=== PATIENT | male | born 1985 | race Caucasian/White ===

== ENCOUNTER 2022-03-04 18:25 | Emergency (ER) | payer OTHER ==
[~2022-03-04] VITALS: Ht 193 cm; Wt 86.2 kg
[2022-03-04 18:30] VITALS: BP 120/75
--- NOTE | 2022-03-04 18:50 | NUR ---
pt swabbed for covid(sara/novel). walked and handed to lab
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
[2022-03-04 19:23] LABS: BASOPHILS # (AUTO) 0.1 K/uL (0.00-0.22); BASOPHILS % (AUTO) 0.6 % (0.0-2.0); EOSINOPHILS # (AUTO) 0.6 K/uL (0-0.4); EOSINOPHILS % (AUTO) 6.4 % (0.0-4.0); HEMATOCRIT 40.5 % (36-52); HEMOGLOBIN 13.7 g/dL (12.0-18.0); LYMPHOCYTES # (AUTO) 2.7 K/uL (2.0-11.5); MEAN CORPUSCULAR HEMOGLOBIN 32 pg (27-31); MEAN CORPUSCULAR HGB CONC 34 g/dL (33-37); MEAN CORPUSCULAR VOLUME 93.9 fL (80-94); MONOCYTES # (AUTO) 0.5 K/uL (0.8-1.0); MONOCYTES % (AUTO) 6.2 % (1.7-9.3); NEUTROPHILS % (AUTO) 56.8 % (42.2-75.2); PLATELET COUNT (AUTO) 245 K/uL (140-450); RED BLOOD CELL COUNT(AUTO) 4.31 MIL/uL (4.20-6.10); RED CELL DISTRIBUTION WIDTH 14.5 % (11.6-13.7); WHITE BLOOD COUNT (AUTO) 8.9 K/uL (4.8-10.8)
[2022-03-04 19:52] LABS: ALBUMIN 3.7 g/dL (3.4-5.0); ANION GAP 10.5 (8-16); ASPARTATE AMINOTRANSFERASE 22 U/L (15-37); CARBON DIOXIDE 32.4 mmol/L (21-32); CHLORIDE 103 mmol/L (98-107); CREATININE 0.8 mg/dL (0.6-1.3); GFR ARICAN-AMERICAN 141 mL/min (>90); GLUCOSE 105 mg/dL (74-106); POTASSIUM 3.9 mmol/L (3.5-5.1); SODIUM SERUM 142 mmol/L (136-145); TOTAL BILIRUBIN 0.1 mg/dL (0.0-1.0); UREA NITROGEN, BLOOD 15 mg/dL (7-18)
[2022-03-04 19:55] LABS: SALICYLATE < 2.8 mg/dL (2.8-20.0)
[2022-03-04 19:56] LABS: ACETAMINOPHEN < 0.5 ug/ml (10-30)
--- NOTE | 2022-03-04 20:11 | NUR ---
per pt is medically cleared.
--- NOTE | 2022-03-04 20:33 | NUR ---
PT AWAKE EATING RESP EVEN AND UNLABORED. C/O SI . PT IS NOT ON A 5150 HOLD. A&OX4. PT STATED "I HAVE ALOT GOING ON " HX OF SI IN PAST. DOES HAVE AUDIO / VISUAL HALLUCATIONS . IS VAGE ON DETAILS. SKIN INTACT WARM AND DRY. ALL ITEMS IN ROOM REMOVED FOR PT SAFTEY . WILL BE ASSESS BY TELEPYSCH IN AM. VENKATESH SI BIPLOAR
--- NOTE | 2022-03-04 23:43 | NUR ---
Note meryl in ED - 03/04/22 at 2344 by TANA PT AWAKE AMBULATE TO BATHROOM WITH STEADY GAIT. PT IS MORE ALERT AND TALKING. ANWERING ALL QUESTIONS APPROPRIETLY.
--- NOTE | 2022-03-04 23:44 | NUR ---
PT ASLEEP WITH RESP EVEN AND UNLABORED. NO DISTRESS NOTED. WILL CONTINUE TO MONITOR PT AND PROVIDE SUPPORT WHEN NEEDED
--- NOTE | 2022-03-05 00:39 | NUR ---
REPORT GIVEN TO , STATES HE WILL CALL BACK FOR PSYCH CONSULT WITH PT.
--- NOTE | 2022-03-05 00:52 | NUR ---
ON TELEPSYCH WITH PT
--- NOTE | 2022-03-05 01:02 | NUR ---
STATES PT CAN BE ADMITTED TO A PSYCH FACILITY, PT VERBAZLIZED VOLUNTARY ADMISSION, WANTS TO GET HELP. ORDERED THE FOLLOWING- LOOK FOR PSYCH FACILITY, NO 5150 HOLD, GIVE 50MG OF LAMICTAL PO DAILY, GIVE ONE DOSE NOW WELL ZOLOFT 50MG PO DAILY, GIVE ONE DOSE NOW. STATES IF PT IS STILL IN ER HE WILL Q24HRS TO REASSESS PT.
[2022-03-05] MEDS ORDERED: NICOTINE TRANSD SYS 14 MG/24 HR PATCH TD ONE (01:18)
--- NOTE | 2022-03-05 01:25 | NUR ---
ORDERED LAMICTAL 50 MG XR PO DAILY, I CALLED PHARMACY AFTERHOURS AND SPOKE TO FINA, STATES WE DO NOT HAVE LAMICTAL XR 50MG. MEDICATION HELD FOR THE TIME BEING UNTIL DR. LÓPEZ CALLS BACK.
[2022-03-05] MEDS: SERTRALINE 50 MG TAB PO SCH ×2 (01:26→09:08)
--- NOTE | 2022-03-05 01:50 | NUR ---
per verna garcia to give regular lamictal 50mg po daily. orders carried out.
--- NOTE | 2022-03-05 04:41 | NUR ---
PT ALSEEP RESP EVEN AND UNLABORED. PENDING ACCEPTANCE TO TRANSFER TO HIGHER LEVEL OF CARE
--- NOTE | 2022-03-05 07:25 | NUR ---
REPORT RECEIVED FROM WERNER ZHANG. ASSUMED CARE AT THIS TIME
--- NOTE | 2022-03-05 07:25 | NUR ---
REPORT RECEIVED FROM WERNER ZHANG. ASSUMED CARE AT THIS TIME
--- NOTE | 2022-03-05 07:34 | NUR ---
pt at rest in supine w/ eyes closed . respirations even and unlabored. in view, bed at lowest position , bed rails upx2
[2022-03-05 08:38] VITALS: BP 118/72
--- NOTE | 2022-03-05 08:40 | NUR ---
pt provided with breakfast. awake and eating in bed.
--- NOTE | 2022-03-05 08:55 | NUR ---
PT REQUESTING TO AMA "I JUST WANT TO GO ". MADE AWARE
[2022-03-05] MEDS ORDERED: NICOTINE TRANSD SYS 21 MG/24 HR PATCH TD SCH (09:00)
[2022-03-05] MEDS ORDERED: CRUSHER, PILL MC ONE (09:09)
--- NOTE | 2022-03-05 09:24 | NUR ---
Patient discharged with v/s stable. Written and verbal after care instructions FOR SUICIDAL FEELINGS given and explained. Patient verbalized understanding. Ambulatory with steady gait. All questions addressed prior to discharge. Advised to follow up with PMD.
--- NOTE | 2022-03-05 09:27 | NUR ---
The patient's care was reviewed and supervised by Marshall 06 ED, RN.
== END 2022-03-05 09:24 | disposition home or self-care (01) ==
LOC: MED 18:25
DX: R45.851 Suicidal ideations (principal); Z20.822 Contact with and (suspected) exposure to COVID-19; F31.9 Bipolar disorder, unspecified; F17.210 Nicotine dependence, cigarettes, uncomplicated; F12.90 Cannabis use, unspecified, uncomplicated; Z71.6 Tobacco abuse counseling
CPT/HCPCS: 36415; 80053; 84443; 85025; 87426; 87635; 99285; C9803; G0480; G0482; 99283